=== PATIENT | female | born 1975 | race Caucasian/White ===

== ENCOUNTER 2016-09-22 09:54 | Emergency (ER) | payer OTHER ==
[2016-09-22 10:08] VITALS: O2SAT 99
--- NOTE | 2016-09-22 10:42 | ED.PDOC ---
History of Present Illness - General Chief Complaint: ENT Problem Stated Complaint: sorethroat Time Seen by Provider: 09/22/16 10:30 Source: patient Exam Limitations: no limitations Additional Information: LAST NOC, SHE STARTED WITH S.T., BL EAR PRESSURE, NASAL CONGESTION. PERSISTS/ WORSENED TODAY. DAUGHTER DX'D W/ STREP THROAT SO SHE WANTED TO GET CHECKED OUT FOR IT AND FLU. - History of Present Illness Severity: moderate EENT Location: throat Prearrival Treatment: no prearrival treatment Improving Factors: nothing Worsening Factors: nothing Associated Symptoms: nasal congestion/drainage, sore throat Allergies/Adverse Reactions: Allergies Erythromycin Allergy (Verified 09/22/16 10:08) Penicillins Allergy (Verified 09/22/16 10:08) Review of Systems - Review of Systems Constitutional: Denies: chills, fever, weakness EENTM: States: ear pain, nose congestion, throat pain. Denies: eye pain, blurred vision, ear discharge, throat swelling Respiratory: States: no symptoms reported. Denies: cough, short of breath, wheezing Cardiology: States: no symptoms reported Gastrointestinal/Abdominal: States: no symptoms reported Genitourinary: States: no symptoms reported Musculoskeletal: States: no symptoms reported Skin: States: no symptoms reported Neurological: States: no symptoms reported Endocrine: States: no symptoms reported Hematologic/Lymphatic: States: no symptoms reported All other Systems: Reviewed and Negative Past Medical History (General) - Patient Medical History Hx Seizures: Yes Hx Stroke: No Hx Cardiac Disorders: - SVT, Tachycardia Hx Congestive Heart Failure: No Hx Diabetes: No Surgical History: other - Vaccination History Hx Tetanus, Diphtheria Vaccination: Yes Hx Influenza Vaccination: Yes - 2015 Hx Pneumococcal Vaccination: No - Social History Hx Tobacco Use: Yes - Quit 2009 Hx Alcohol Use: No Hx Substance Use: No Hx Substance Use Treatment: No Hx Depression: No - Activities of Daily Living Hospice Agency (if applicable):: None - Female History Patient is a Female of Child Bearing Age (10 -59 yrs old): No Patient : No Family Medical History - Family History Mother Family History: No Known Living Status: Still Living Physical Exam - Physical Exam General Appearance: No apparent distress, Well Developed, Well Groomed Eye Exam: bilateral normal Ear Exam: right ear: auricle normal, canal normal, TM normal, left ear: other - TM DULL Nasal Exam: normal inspection Throat Exam: normal mouth inspection, pharynx normal Neck: non-tender, full range of motion, supple Cardiovascular/Respiratory: regular rate, rhythm, no M/R/G, normal breath sounds , no respiratory distress Abdominal Exam: non-tender Neurologic: alert, oriented x 3 Skin Exam: normal color, warm/dry Progress - Results/Orders Results/Orders: RAPID FLU AND STREP NEG. ONLY HAS 1/4 [facility]OR CRITERIA, THUS NO ABX INDICATED. VIRAL URI. WE TALKED IN DEPTH AND SHE IS COMFORTABLE WITH NOT HAVING AN ABX RX AND UNDERSTANDS IT WILL TAKE TIME FOR HER IMMUNE SYSTEM TO FIGHT IT OFF. Departure - Departure Clinical Impression: Upper respiratory infection, viral, Pharyngitis, acute, Sore throat (viral) Disposition: Discharge to Home or Self Care Condition: Good Departure Forms: ED Discharge - Pt. Copy, Patient Portal Self Enrollment Instructions: DI for Viral Upper Respiratory Infection -- Adult Diet: regular diet Activity: increase activity as tolerated Additional Instructions: Please take Mucinex (Guaifenesin, Robitussin) as needed to help with congestion. Ibuprofen can help with the discomfort. Chloraseptic sort throat spray or [place] menthol cough drops can help to soothe the sore throat. I hope you feel better soon!
[2016-09-22 11:10] VITALS: BP 117/81; TEMP 98.3
== END 2016-09-22 11:11 | disposition home or self-care (01) ==
LOC: ER 09:54
DX: J06.9 Acute upper respiratory infection, unspecified (principal); Z87.891 Personal history of nicotine dependence; Z88.0 Allergy status to penicillin; Z88.3 Allergy status to other anti-infective agents

== ENCOUNTER 2016-12-21 20:10 | Emergency (ER) | payer OTHER ==
[2016-12-21 20:31] VITALS: BP 136/84; TEMP 98; O2SAT 98
--- NOTE | 2016-12-21 21:28 | ED.PDOC ---
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 She reports ear pain and throat pain and she is concerned she may have strep throat. - History of Present Illness Timing/Duration: gradual Severity: mild EENT Location: ear (R) Prearrival Treatment: no prearrival treatment Improving Factors: nothing Allergies/Adverse Reactions: Allergies Erythromycin Allergy (Verified 12/21/16 20:31) Penicillins Allergy (Verified 12/21/16 20:31) Home Medications: Ambulatory Orders NK [NK] 12/21/16 Review of Systems - Review of Systems Constitutional: States: no symptoms reported EENTM: States: see HPI, ear pain, throat pain Respiratory: States: no symptoms reported Cardiology: States: no symptoms reported Gastrointestinal/Abdominal: States: no symptoms reported Genitourinary: States: no symptoms reported Musculoskeletal: States: no symptoms reported Skin: States: no symptoms reported Neurological: States: no symptoms reported Endocrine: States: no symptoms reported Hematologic/Lymphatic: States: no symptoms reported Past Medical History (General) - Patient Medical History Hx Seizures: Yes Hx Stroke: No Hx Cardiac Disorders: - SVT, Tachycardia Hx Congestive Heart Failure: No Hx Diabetes: No - Vaccination History Hx Tetanus, Diphtheria Vaccination: Yes Hx Influenza Vaccination: Yes Hx Pneumococcal Vaccination: No Immunizations Up to Date: Yes - Social History Hx Tobacco Use: Yes - Quit 2009 Hx Alcohol Use: Yes Hx Substance Use: No Hx Substance Use Treatment: No Hx Depression: No - Female History Patient is a Female of Child Bearing Age (10 -59 yrs old): Yes Patient : No Family Medical History - Family History Mother Family History: No Known Living Status: Still Living Physical Exam - Physical Exam General Appearance: Alert, Comfortable, No apparent distress, Well Developed, Well Groomed, Well Hydrated, Well Nourished Eye Exam: bilateral normal Ear Exam: bilateral ear: TM normal Nasal Exam: normal inspection Throat Exam: pharynx normal Neck: non-tender, full range of motion, supple Cardiovascular/Respiratory: regular rate, rhythm, normal peripheral pulses, no respiratory distress 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 Exam unremarkable. Strep swab obtained - rapid negative. Results relayed to patient. Plan is for discharge home with plan to take Flonase - 2 sprays each nostril daily followed by 1 spray each nostril daily. Pt is to f/u with PCM if unimproved in 2 to 3 days as well as call for culture results if symptoms persist. Pt advised to return to ER if condition worsens. - Results/Orders Results/Orders: 12/21/16 21:00 STREP A SCREEN CULTURE Stat Laboratory Results - last 24 hr 12/21/16 21:00 Group A Strep Rapid Cancelled Group A Strep DNA Negative Departure - Departure Clinical Impression: Earache on right Acute pharyngitis, unspecified Qualifiers: Pharyngitis/tonsillitis etiology: unspecified etiology Qualified Code(s): J02.9 - Acute pharyngitis, unspecified Time of Disposition: 21:35 Disposition: Discharge to Home or Self Care Condition: Good Departure Forms: ED Discharge - Pt. Copy, Patient Portal Self Enrollment Instructions: Allergies, Respiratory (Alternative Therapy) Referrals: Gorge Mohan MD [Primary Care Provider] - 1-5 Days Home Medications: Ambulatory Orders NK [NK] 12/21/16 Additional Instructions: Take Flonase - 2 sprays each nostril daily for 1 week and then 1 spray each nostril daily for at least another week. Follow-up with Primary Care Provider if symptoms persist in 2 to 3 days, or return to ER sooner if condition worsens.
== END 2016-12-21 21:37 | disposition home or self-care (01) ==
LOC: ER 20:10
DX: J02.9 Acute pharyngitis, unspecified (principal); H92.01 Otalgia, right ear; I47.1 Supraventricular tachycardia; Z88.3 Allergy status to other anti-infective agents; Z88.0 Allergy status to penicillin; Z87.891 Personal history of nicotine dependence

== ENCOUNTER → 2017-05-23 | Outpatient (CLI) | payer OTHER | END | disposition home or self-care (01) | LOC: GMA 13:20 | PROVIDERS: ATTEND Nurse Practitioner Acute Care | DX: R53.83 Other fatigue (principal); Z01.419 Encounter for gynecological examination (general) (routine) without abnormal findings ==

== ENCOUNTER → 2017-06-04 | Outpatient (CLI) | payer OTHER ==
--- NOTE | 2017-06-05 14:03 | MAM ---
EXAM DESCRIPTION: 3D Screening BILATERAL CLINICAL HISTORY: 41 yearsFemaleSCREENING no complaints. Remote family history of breast cancer. Premenopausal.. COMPARISON: 2-D digital screening bilateral study 03/20/2016.. Report from prior examination also reviewed. TECHNIQUE: Bilateral CC and MLO projection full-field images, 3-D tomosynthesis digital mammographic technique. Also bilateral synthesized CC/ MLO full-field images. CAD not utilized. FINDINGS: The breast parenchymal density pattern is: Heterogeneously dense breast tissue, which may obscure small masses. No skin thickening or nipple retraction bilateral solitary microcalcifications. No focal, stellate mass or density, focal asymmetry , and no suspicious microcalcifications bilaterally. Stable mammograms compared to prior study, taking into account differences in mammographic technique IMPRESSION: BI-RADS CATEGORY: 2 - BENIGN FINDINGS. FOLLOW UP: Routine digital bilateral screening, one year interval from May 2017. Written communication explaining the IMPRESSION and follow-up, will be mailed to the patient and referring health care provider. According to the [employer], yearly mammograms are recommended starting at age 40 and continuing as long as a woman is in good health. Any breast change noted on a breast self-exam should be reported promptly to the patient's healthcare provider. Breast MRI is recommended for women with an approximately 20-25% or greater lifetime risk of breast cancer, including women with a strong family history of breast or ovarian cancer and women who have been treated for Hodgkin's disease. A negative mammographic report should not delay tissue diagnosis in patients with significant clinical history or physical findings. Extremely dense breast tissue limits the sensitivity of digital mammography. Electronically signed by: Severiano Olson MD 06/05/2017 2:02 PM CDT
== END | disposition home or self-care (01) ==
LOC: MAMMO 09:38
PROVIDERS: ATTEND Family Medicine
DX: Z12.31 Encounter for screening mammogram for malignant neoplasm of breast (principal)
CPT/HCPCS: 77063; G0202

== ENCOUNTER → 2017-09-11 | Outpatient (CLI) | payer OTHER | END | disposition home or self-care (01) | LOC: LAB.O 16:51 | PROVIDERS: ATTEND Family Medicine | DX: R19.7 Diarrhea, unspecified (principal) ==

== ENCOUNTER → 2017-10-21 | Outpatient (CLI) | payer OTHER | LOC: GMAB 11:22 | PROVIDERS: ATTEND Family Medicine | DX: E03.9 Hypothyroidism, unspecified (principal) ==

== ENCOUNTER → 2017-11-05 | Outpatient (CLI) | payer OTHER | LOC: GMA 11:20 | PROVIDERS: ATTEND Physician Assistant | DX: G47.62 Sleep related leg cramps (principal) ==

== ENCOUNTER → 2017-12-18 | Outpatient (CLI) | payer OTHER | LOC: GMAM 14:19 | PROVIDERS: ATTEND Family Medicine | DX: R60.0 Localized edema (principal); E03.9 Hypothyroidism, unspecified ==

== ENCOUNTER → 2017-12-30 | Outpatient (CLI) | payer OTHER | LOC: LAB.O 18:27 | PROVIDERS: ATTEND Nurse Practitioner Family | DX: E53.9 Vitamin B deficiency, unspecified (principal); E55.9 Vitamin D deficiency, unspecified ==

== ENCOUNTER → 2018-02-11 | Outpatient (CLI) | payer OTHER | LOC: GMAM 16:45 | PROVIDERS: ATTEND Family Medicine | DX: E03.9 Hypothyroidism, unspecified (principal) ==

== ENCOUNTER → 2018-02-24 | Outpatient (CLI) | payer OTHER | LOC: LAB.O 12:04 | PROVIDERS: ATTEND Family Medicine | DX: L63.0 Alopecia (capitis) totalis (principal); E03.9 Hypothyroidism, unspecified ==

== ENCOUNTER → 2018-07-13 | Outpatient (CLI) | payer OTHER ==
--- NOTE | 2018-07-14 10:33 | MAM ---
EXAM DESCRIPTION: 3D Screening BILATERAL : Digital Mammography. CLINICAL HISTORY: 43 years Female ANNUAL SCREENING . No complaints or personal history of breast cancer. Remote family history of breast cancer. Childbirth. Premenopausal. No HRT. Lifetime risk of developing breast cancer (Tyrer-Cuzick model)(%): 13.0. COMPARISON: Bilateral screening digital breast tomosynthesis 06/04/2017. TECHNIQUE: Bilateral CC and MLO projection full-field images, digital tomosynthesis mammographic technique. Bilateral digital 2-D full-field MLO images. CAD not available for tomosynthesis or 2-D images. FINDINGS: The breast parenchymal density pattern is: Heterogeneously dense breast tissue, which may obscure small masses. No skin thickening or nipple retraction. Scattered bilateral solitary microcalcifications. Questionable focal asymmetry at the 11:30 to 12:00 position of the left breast approximately 7 cm from the nipple. There may be some architectural distortion as well. Not associated with microcalcifications. Not well seen on the prior study. No new focal, stellate mass or density, focal asymmetry , and no suspicious microcalcifications right breast. IMPRESSION: BI-RADS CATEGORY: 0 - INCOMPLETE- Need additional imaging evaluation. FOLLOW-UP: Recall for additional imaging: Orthogonal full-field tomosynthesis region of interest left breast. Targeted left breast ultrasound to follow if indicated by diagnostic images.. Written communication concerning the IMPRESSION and Follow-up, will be mailed to the patient and referring health care provider. Electronically signed by: Severiano Olson MD 07/14/2018 10:32 AM MIME ARTIST
== END ==
LOC: MAMMO 09:00
PROVIDERS: ATTEND Family Medicine
DX: Z12.31 Encounter for screening mammogram for malignant neoplasm of breast (principal)

== ENCOUNTER → 2018-07-20 | Outpatient (CLI) | payer OTHER ==
--- NOTE | 2018-07-20 14:32 | US ---
EXAM DESCRIPTION: Breast,Left: Ultrasound CLINICAL HISTORY: 43 yearsFemaleABN MAMMO COMPARISON: Digital diagnostic tomosynthesis left breast on this visit. Bilateral screening digital breast tomosynthesis 07/13/2018. TECHNIQUE: Transcutaneous scanning of the left breast utilizing dominique-scale and Doppler modes. Scanning performed by the subpoena server ; observation by Dr. Olson. FINDINGS: Scanning of the upper left breast middle third. Heterogeneous mixture of fibroglandular and fatty tissues. Specifically scanning at the 12:00-1:00 position, 6 cm from the nipple. No distinct solid mass or cyst. No large calcification or parenchymal edema. No overlying skin changes. Normal vascularity. IMPRESSION: 1. Bi-Rads Category 2: Benign. 2. Please refer to diagnostic tomosynthesis left breast and report on this visit. The FINDINGS and the FOLLOW-UP plan were reviewed in person with the patient after the examination. Written communication explaining the IMPRESSION and FOLLOW-UP will be mailed to the patient and referring care provider. Electronically signed by: Severiano Olson MD 07/20/2018 2:30 PM [facility]
--- NOTE | 2018-07-21 10:04 | MAM ---
EXAM DESCRIPTION: 3D Diagnostic, Left: Digital Mammography CLINICAL HISTORY: 43 yearsFemaleABNORMAL MAMMO focal asymmetry upper left breast. COMPARISON: Bilateral screening digital breast tomosynthesis 07/13/2018. Targeted left breast ultrasound following this examination.. TECHNIQUE: Left LM projection full-field images, digital mammographic tomosynthesis technique. CAD not available. FINDINGS: The breast parenchymal density pattern is: Heterogeneously dense breast tissue, which may obscure small masses. No skin thickening or nipple retraction focal asymmetry at the 12:00 position of the middle third of the left breast not as well-demonstrated on LM tomosynthesis images today. Ultrasound: Scanning of the upper left breast middle third. Heterogeneous mixture of fibroglandular and fatty tissues. Specifically scanning at the 12:00-1:00 position, 6 cm from the nipple. No distinct solid mass or cyst. No large calcification or parenchymal edema. No overlying skin changes. Normal vascularity. IMPRESSION: Benign exam. BIRAD CATEGORY: 2 BENIGN FINDINGS. RECOMMENDATIONS: FOLLOW UP: Routine digital bilateral mammographic screening, one year interval from June 2018. The FINDINGS and the FOLLOW-UP plan were reviewed in person with the patient after the examination. Written communication explaining the IMPRESSION and FOLLOW-UP will be mailed to the patient and referring care provider. According to the [employer], yearly mammograms are recommended starting at age 40 and continuing as long as a woman is in good health. Any breast change noted on a breast self-exam should be reported promptly to the patient's healthcare provider. Breast MRI is recommended for women with an approximately 20-25% or greater lifetime risk of breast cancer, including women with a strong family history of breast or ovarian cancer and women who have been treated for Hodgkin's disease. A negative mammographic report should not delay tissue diagnosis in patients with significant clinical history or physical findings. Extremely dense breast tissue limits the sensitivity of digital mammography. Electronically signed by: Severiano Olson MD 07/21/2018 10:03 AM [facility]
== END ==
LOC: MAMMO 11:03
PROVIDERS: ATTEND Family Medicine
DX: R92.8 Other abnormal and inconclusive findings on diagnostic imaging of breast (principal)
CPT/HCPCS: 76641; 77065; G0279

== ENCOUNTER 2020-01-04 00:03 | Emergency (ER) | payer OTHER ==
[2020-01-04] MEDS ORDERED: SODIUM CHLORIDE 0.9% (FLUSH) 10 ML SYG IV PRN (00:06)
--- NOTE | 2020-01-04 00:07 | ED.PDOC ---
History of Present Illness - General Time Seen by Provider: 01/04/20 00:05 Source: patient - History of Present Illness Initial Comments: 44 yo female with PMH of anxiety who presents with cc of anxiety and chest pain. Chest pain onset 3-4 days ago, gradually worsening, further acutely worsened tonight in past couple hours. States she has been anxious for the past several weeks from the pandemic. She has tried to quit watching the news but still re porting large amounts of anxiety. Reports worsening tightness throughout her chest - begins in center and left chest wall and radiates to Left arm, upper back, and right chest wall. Waxes & wanes, 7/10 severity on arrival, better with activity and moving around, worse when lying still, tried Tylenol earlier with little relief. Denies any dyspnea, cough, fevers, chills, abd pain, n/v/d, leg swelling. PCP is Dr. Mohan. She is worried she may be having a panic attack. Pt in tears upon arrival. Reports a similar episode approx 9 years ago shortly after the of her daughter. Does not take any medications currently. No reported personal or family hx of cardiac dz. Never smoker, denies illicit drug or alcohol use. Allergies/Adverse Reactions: Allergies Erythromycin Allergy (Verified 01/04/20 00:13) Penicillins Allergy (Verified 01/04/20 00:13) Home Medications: Ambulatory Orders Hydroxyzine HCl 25 mg PO Q6H PRN 30 Days #30 tab 01/04/20 Review of Systems - Review of Systems Review of Systems: 01/04/20 01:06 as per HPI All other Systems: Reviewed and Negative Past Medical History (General) - Patient Medical History Hx Seizures: Yes Hx Stroke: No Hx Cardiac Disorders: - SVT, Tachycardia Hx Congestive Heart Failure: No Hx Diabetes: No - Vaccination History Hx Tetanus, Diphtheria Vaccination: Yes Hx Influenza Vaccination: Yes Hx Pneumococcal Vaccination: No - Social History Hx Tobacco Use: Yes - Quit 2009 Hx Alcohol Use: Yes Hx Substance Use: No Hx Substance Use Treatment: No Hx Depression: No - Female History Patient : No Family Medical History - Family History Mother Family History: No Known Living Status: Still Living Physical Exam - Physical Exam General Appearance: Alert, Anxious, No apparent distress Eyes, Ears, Nose, Throat Exam: PERRL/EOMI, normal ENT inspection, pharynx normal Neck: non-tender, full range of motion, supple, normal inspection Respiratory: chest non-tender, lungs clear, normal breath sounds, no respiratory distress, no accessory muscle use Cardiovascular/Chest: normal peripheral pulses, regular rate, rhythm, no edema, no gallop, no JVD, no murmur, other - upper parathoracic musculature with moderate ttp and scattered spasms Peripheral Pulses: radial,right: 2+, radial,left: 2+ Gastrointestinal/Abdominal: non tender, soft, no organomegaly Extremity: normal range of motion, non-tender, normal inspection, no pedal edema, no calf tenderness, normal capillary refill 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 Consider also MSK chest pain, upper back muscle spasms, PNA, ACS, GERD, other -pt is negative for PE by PERC rule -vitals stable, BP mildly elevated 140s/90s -obtain cardiac work-up, labs -place PIV, Toradol 30 mg IV, Xanax 0.5 mg PO 01/04/20 02:22 -Pt reports marked improvement in chest pain and anxiety. Feeling much better and eager to go home. Remains stable, vitals wnl. -Trop <0.02 x2 in ED, repeat EKG unchanged from initial. K 3.1 (replenished PO), remainder of labs pretty unremarkable. -Discussed diagnosis of acute anxiety and panic attack with patient. Advised continued nonpharmacological methods of dealing/cope with stress/anxiety. Will give Rx of PRN hydroxyzine to try to help with breakthrough anxiety. -will dc to home in good condition, return warnings discussed. Advised close f/u with PCP Geovanny Yepez MD Billing #[id number] 01/04/20 00:06 IV Care:Saline Lock per Protoc QSHIFT Telemetry .ONCE Sodium Chloride 0.9% (Flush) [Saline Flush Syringe] 10 ml IV PRN PRN 01/04/20 00:15 EKG STAT 01/04/20 01:45 EKG STAT 01/04/20 09:00 Pulse Ox Daily Laboratory Results - last 24 hr 0501/04/20 01/04/20 00:20 00:20 00:20 WBC 7.4 RBC 4.74 Hgb 14.2 Hct 42.0 MCV 88.5 MCH 29.9 MCHC 33.8 RDW 15.5 H Plt Count 238 MPV 6.6 L Absolute Neuts (auto) 3.20 Absolute Lymphs (auto) 3.30 Absolute Monos (auto) 0.60 Absolute Eos (auto) 0.20 Absolute Basos (auto) 0.10 Neutrophils % 43.1 Lymphocytes % 44.1 Monocytes % 8.7 Eosinophils % 3.1 Basophils % 1.0 Sodium 138 Potassium 3.2 L Chloride 106 Carbon Dioxide 21 Anion Gap 14.2 BUN 7 Creatinine 0.51 L BUN/Creatinine Ratio 13.7 Random Glucose 95 Serum Osmolality 273.5 L Calcium 9.2 Total Bilirubin 1.0 AST 24 ALT 23 Alkaline Phosphatase 27 L Troponin I < 0.02 B-Natriuretic Peptide 5.6 Serum Total Protein 7.2 Albumin 4.5 Globulin 2.7 Albumin/Globulin Ratio 1.7 01/04/20 01:53 WBC RBC Hgb Hct MCV MCH MCHC RDW Plt Count MPV Absolute Neuts (auto) Absolute Lymphs (auto) Absolute Monos (auto) Absolute Eos (auto) Absolute Basos (auto) Neutrophils % Lymphocytes % Monocytes % Eosinophils % Basophils % Sodium Potassium Chloride Carbon Dioxide Anion Gap BUN Creatinine BUN/Creatinine Ratio Random Glucose Serum Osmolality Calcium Total Bilirubin AST ALT Alkaline Phosphatase Troponin I < 0.02 B-Natriuretic Peptide Serum Total Protein Albumin Globulin Albumin/Globulin Ratio - EKG/XRAY/CT EKG: Sinus - NSR, HR 90, no ST elevs or q waves noted, axis normal, QT interval borderline prolonged 497 msecs, intervals otherwise normal, no prior EKG for comparison XRAY: chest - no acute processes per my read Departure - Departure Clinical Impression: Anxiety, Panic attack Time of Disposition: 02:22 Disposition: Discharge to Home or Self Care Condition: Good Instructions: DI for Chest Pain, Anxiety, Adult (DC) Diet: resume usual diet Activity: increase activity as tolerated Referrals: Gorge Mohan MD [Primary Care Provider] - 1-2 Weeks Prescriptions: Hydroxyzine HCl 25 mg PO Q6H PRN 30 Days #30 tab PRN Reason: Anxiety Home Medications: Ambulatory Orders Hydroxyzine HCl 25 mg PO Q6H PRN 30 Days #30 tab 05/12/20 Additional Instructions: Return if chest pain worsens or changes in character or if you develop shortness of breath, productive cough, fever >100 F, etc... Continue taking ibuprofen and Tylenol as needed for pain. You may take the hydroxyzine as needed for anxiety.
--- NOTE | 2020-01-04 00:29 | RAD ---
EXAM: XR Chest, 1 View CLINICAL HISTORY: 44 years old Female; left-sided chest pain. TECHNIQUE: Frontal view of the chest. COMPARISON: Similar examination performed 07/29/2011, no report provided. FINDINGS: LUNGS: Lungs clear of new focal infiltrate or mass. PLEURAL SPACE: No increasing pleural fluid. No pneumothorax. HEART: Heart not enlarged. MEDIASTINUM: Stable in contour. BONES/JOINTS: No acute bony abnormality seen. IMPRESSION: - No acute cardiopulmonary pathology seen. Please note that chest radiographs have low sensitivity for subtle groundglass opacities. Thank you for allowing us to participate in the care of this patient. Electronically signed by: Aníbal Pacheco MD 01/04/2020 12:27 AM CDT
[2020-01-04] MEDS ORDERED: ALPRAZolam 0.25 MG TAB PO ONE (01:01)
[2020-01-04] MEDS ORDERED: KETOROLAC TROMETHAMINE INJ 30 MG/ML VIAL IV ONE (01:01)
[2020-01-04] MEDS ORDERED: SODIUM CHLORIDE 0.9% 500ML 500 ML IVS ONE (01:08)
[2020-01-04] MEDS ORDERED: POTASSIUM CHLORIDE 20 MEQ TAB PO ONE (01:09)
[2020-01-04 02:02] VITALS: O2SAT 100
[2020-01-04 02:28] VITALS: BP 119/80
[2020-01-04 02:30] VITALS: TEMP 97.7
== END 2020-01-04 02:31 | disposition home or self-care (01) ==
LOC: ER 00:03
DX: F41.0 Panic disorder [episodic paroxysmal anxiety] (principal); R07.89 Other chest pain; E87.6 Hypokalemia; Z87.891 Personal history of nicotine dependence
CPT/HCPCS: 36415; 71045; 80053; 83880; 84484; 85025; 93005; J1885; J7040

== ENCOUNTER 2020-02-18 21:54 | Emergency (ER) | payer OTHER ==
[2020-02-18] MEDS ORDERED: predniSONE 20 MG TAB PO ONE (22:13)
[2020-02-18 22:14] VITALS: BP 152/101; TEMP 97.9; O2SAT 100
[2020-02-18] MEDS ORDERED: diphenhydrAMINE HCL 25 MG CAP PO ONE (22:14)
--- NOTE | 2020-02-18 22:16 | ED.PDOC ---
History of Present Illness - General Chief Complaint: General Stated Complaint: my left leg is swollen and tender Time Seen by Provider: 02/18/20 22:08 Source: patient Exam Limitations: no limitations - History of Present Illness Initial Comments: The patient is a 44-year-old female presented emergency room secondary to mild erythema and swelling just inferior to the posterior left knee. She just noticed it this evening. There is mild burning and a mild itching sensation. No evidence of any bite. No evidence of any blistering. No point tenderness or palpable cords. No varicose veins obvious. This looks most consistent with a contact or allergic dermatitis type reaction. No evidence of any similar areas elsewhere on her body. No shortness of breath. No history of any DVTs. She has been active all day. Timing/Duration: 1-3 hours Severity: mild Improving Factors: nothing Worsening Factors: nothing Associated Symptoms: denies symptoms Allergies/Adverse Reactions: Allergies Erythromycin Allergy (Verified 01/04/20 00:13) Penicillins Allergy (Verified 01/04/20 00:13) Home Medications: Ambulatory Orders Hydroxyzine HCl 25 mg PO Q6H PRN 30 Days #30 tab 01/04/20 Review of Systems - Review of Systems Constitutional: States: no symptoms reported EENTM: States: no symptoms reported Respiratory: States: no symptoms reported Cardiology: States: no symptoms reported Gastrointestinal/Abdominal: States: no symptoms reported Genitourinary: States: no symptoms reported Musculoskeletal: States: no symptoms reported Skin: States: see HPI Neurological: States: no symptoms reported Endocrine: States: no symptoms reported All other Systems: No Change from Baseline Past Medical History (General) - Patient Medical History Hx Seizures: Yes Hx Stroke: No Hx Dementia: No Hx Asthma: No Hx of COPD: No Hx Cardiac Disorders: - SVT, Tachycardia Hx Congestive Heart Failure: No Hx Pacemaker: No Hx Hypertension: No Hx Diabetes: No Hx Gastroesophageal Reflux: No Hx Renal Disease: No Hx Cancer: No Hx of HIV: No Hx Hepatitis C: No Hx MRSA: No - Vaccination History Hx Tetanus, Diphtheria Vaccination: Yes Hx Influenza Vaccination: Yes Hx Pneumococcal Vaccination: No - Social History Hx Tobacco Use: Yes - Quit 2009 Hx Alcohol Use: Yes Hx Substance Use: No Hx Substance Use Treatment: No Hx Depression: No - Female History Patient : No Family Medical History - Family History Mother Family History: No Known Living Status: Still Living Physical Exam - Physical Exam General Appearance: Alert, Comfortable, No apparent distress Eye Exam: bilateral normal Ears, Nose, Throat: hearing grossly normal Respiratory: lungs clear, normal breath sounds, no respiratory distress, no accessory muscle use Cardiovascular/Chest: no edema Peripheral Pulses: radial,right: 2+, radial,left: 2+ Rectal Exam: deferred Extremity: normal range of motion, non-tender, no pedal edema, normal capillary refill 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 Comments: Vital Signs - 24 hr 02/18/20 21:59 Temperature 97.9 F Pulse Rate [ 88 monitor] Respiratory 16 Rate Blood Pressure 152/101 [Left Arm] O2 Sat by Pulse 100 Oximetry Progress - Progress Progress: 02/18/20 22:16 The patient is a 44-year-old female presenting with what appears to be an allergic or contact dermatitis to the left upper posterior calf. Source of this is not certain. The patient was given a dose of prednisone and Benadryl. She does need to watch it over the next week to make sure it slowly is resolving. She is return to the emergency room for any significant worsening. ER warnings are given. Keep routine follow-up with primary care doctor. Departure - Departure Clinical Impression: Dermatitis Disposition: Discharge to Home or Self Care Condition: Fair Departure Forms: ED Discharge - Pt. Copy, Patient Portal Self Enrollment Instructions: Contact Dermatitis (DC) Diet: regular diet Activity: increase activity as tolerated Referrals: Gorge Mohan MD [Primary Care Provider] - 1-2 Weeks Home Medications: Ambulatory Orders Hydroxyzine HCl 25 mg PO Q6H PRN 30 Days #30 tab 01/04/20 Additional Instructions: The patient is a 44-year-old female presenting with what appears to be an allergic or contact dermatitis to the left upper posterior calf. Source of this is not certain. The patient was given a dose of prednisone and Benadryl. She does need to watch it over the next week to make sure it slowly is resolving. She can take Zyrtec 10 mg daily for the next week which may also help. Additionally [id number] hydrocortisone 10 topically once or twice a day may also help to shorten the course. She is return to the emergency room for any significant worsening. ER warnings are given. Keep routine follow-up with primary care doctor.
== END 2020-02-18 22:20 | disposition home or self-care (01) ==
LOC: ER 21:54
DX: L30.9 Dermatitis, unspecified (principal); Z87.891 Personal history of nicotine dependence
CPT/HCPCS: J7512; Q0163

== ENCOUNTER 2020-03-16 17:39 | Emergency (ER) | payer OTHER ==
--- NOTE | 2020-03-16 18:07 | ED.PDOC ---
History of Present Illness - General Time Seen by Provider: 03/16/20 17:59 Source: patient, RN notes reviewed, Vital Signs reviewed Exam Limitations: no limitations - History of Present Illness Initial Comments: Patient is a 44-year-old female who presents the ED for mild cough for the past 3 days. States she has had chest congestion and runny nose and feels like she may have bronchitis. Also states that she has had loose stools 1-2 times a day for the past 5 days. Denies any abdominal pain, blood in stool, nausea, vomiting, chest pain or feeling short of breath. Had subjective fever at home but has not taken her temperature. Also states she has been exposed to someone with COVID-19 recently and is unsure if the symptoms may be due to COVID-19. Allergies/Adverse Reactions: Allergies Erythromycin Allergy (Verified 01/04/20 00:13) Penicillins Allergy (Verified 01/04/20 00:13) Review of Systems - Review of Systems Constitutional: Denies: chills, weakness EENTM: States: nose congestion. Denies: ear pain, throat pain Respiratory: States: cough. Denies: short of breath, wheezing Cardiology: Denies: palpitations, syncope Gastrointestinal/Abdominal: States: diarrhea. Denies: abdominal pain, nausea, vomiting Genitourinary: Denies: dysuria, frequency, hematuria Musculoskeletal: Denies: back pain, neck pain Skin: States: no symptoms reported Neurological: Denies: headache, paresthesia All other Systems: Reviewed and Negative Past Medical History (General) - Patient Medical History Hx Seizures: Yes Hx Stroke: No Hx Dementia: No Hx Asthma: No Hx of COPD: No Hx Cardiac Disorders: - SVT, Tachycardia Hx Congestive Heart Failure: No Hx Pacemaker: No Hx Hypertension: No Hx Diabetes: No Hx Gastroesophageal Reflux: No Hx Renal Disease: No Hx Cancer: No Hx of HIV: No Hx Hepatitis C: No Hx MRSA: No - Vaccination History Hx Tetanus, Diphtheria Vaccination: Yes Hx Influenza Vaccination: Yes Hx Pneumococcal Vaccination: No - Social History Hx Tobacco Use: Yes - Quit 2009 Hx Alcohol Use: Yes Hx Substance Use: No Hx Substance Use Treatment: No Hx Depression: No - Female History Patient : No Family Medical History - Family History Mother Family History: No Known Living Status: Still Living Physical Exam - Physical Exam General Appearance: Alert, Comfortable, No apparent distress, Other - Well- appearing, nontoxic Ears, Nose, Throat: normal pharynx Neck: full range of motion, supple Respiratory: chest non-tender, lungs clear, normal breath sounds, no respiratory distress, no accessory muscle use Cardiovascular/Chest: normal peripheral pulses, regular rate, rhythm, no murmur Gastrointestinal/Abdominal: non tender, soft, no pulsatile mass Back Exam: no CVA tenderness, no vertebral tenderness Extremity: normal range of motion, non-tender, no pedal edema Neurologic: no motor/sensory deficits, alert, normal mood/affect Skin Exam: normal color, warm/dry Progress - Progress Progress: 03/16/20 18:08 Patient presents to ED for several day history of cough and loose stools. Has had no documented fever and has not been short of breath. Vital signs are reassuring. I have discussed with patient that in the emergency we are testing people that likely will need admission for COVID-19. I have given her resources for outpatient testing in the clinic tomorrow. Will get chest x-ray to rule out pneumonia. Patient agrees with plan 03/16/20 19:13 Chest x-ray shows no acute process. Patient has no hypoxia or respiratory distress. Lung sounds are clear. Patient stable for outpatient treatment and will follow up with her PCP for continued evaluation and possible COVID-19 testing in the morning. Strict return precautions given. - Results/Orders Results/Orders: Chest xray EXAM DESCRIPTION: Chest,1 View CLINICAL HISTORY:44 years Female, shortness of breath Comparison: January 04, 2020 FINDINGS: No focal lung consolidation. No pleural effusion. No pneumothorax. Cardiac and mediastinal silhouette is unremarkable. No acute osseous abnormality. Soft tissues are unremarkable. IMPRESSION: No acute findings. No focal lung consolidation. Departure - Departure Clinical Impression: Viral URI with cough Time of Disposition: 19:11 Disposition: Discharge to Home or Self Care Condition: Good Instructions: Viral Upper Respiratory Infection, Adult (DC) Diet: resume usual diet Activity: increase activity as tolerated Referrals: Gorge Mohan MD [Primary Care Provider] - 1-2 Days
--- NOTE | 2020-03-16 19:07 | RAD ---
EXAM DESCRIPTION: Chest,1 View CLINICAL HISTORY:44 years Female, shortness of breath Comparison: January 04, 2020 FINDINGS: No focal lung consolidation. No pleural effusion. No pneumothorax. Cardiac and mediastinal silhouette is unremarkable. No acute osseous abnormality. Soft tissues are unremarkable. IMPRESSION: No acute findings. No focal lung consolidation. Electronically signed by: Bear Wiggins MD 03/16/2020 7:05 PM CDT
[2020-03-16 19:19] VITALS: BP 140/90; TEMP 98.2; O2SAT 99
== END 2020-03-16 19:19 | disposition home or self-care (01) ==
LOC: ER 17:39
DX: J06.9 Acute upper respiratory infection, unspecified (principal); R05 Cough; Z87.891 Personal history of nicotine dependence; Z20.828 Contact with and (suspected) exposure to other viral communicable diseases

== ENCOUNTER 2020-03-21 09:47 | Emergency (ER) | payer OTHER ==
[2020-03-21] MEDS ORDERED: SODIUM CHLORIDE 0.9% 1000ML 1,000 ML IVS PRN (10:02)
[2020-03-21 10:11] VITALS: O2SAT 100
--- NOTE | 2020-03-21 10:14 | ED.PDOC ---
History of Present Illness - General Chief Complaint: Respiratory Problem Stated Complaint: chest tightness Time Seen by Provider: 03/21/20 09:51 - History of Present Illness Initial Comments: Pleasant 44 yo F comes in from PCP office with the c/c of difficulty breathing and chest pressure x 1 day. Patient started with nasal congestion and sinus pressure 4-5 days ago. Was evaluated and told she had a sinus infection. She then developed a PND cough. She was seen in resp clinic and tested positive for covid. Denies headaches, sore throat, change in vision. Chest pressure is substernal, does not radiate. Is constant. NO hx of cad, no family hx of cardiac disease. States she is very anxious. No known covid exposures. No hx of blood clots, no recent surgery or travel. no prolong bed rest. no calf swelling. Allergies/Adverse Reactions: Allergies Erythromycin Allergy (Verified 01/04/20 00:13) Penicillins Allergy (Verified 01/04/20 00:13) Home Medications: Ambulatory Orders Clindamycin HCl [Clindamycin Hydrochloride] 300 mg PO Q8H 10 Days #30 cap 03/21/20 Review of Systems - Review of Systems Constitutional: States: fever - unsure tempature. Denies: chills, diaphoresis, malaise, weakness EENTM: States: nose congestion. Denies: blurred vision, tearing, ear pain, ear discharge, nose pain, throat pain, throat swelling, mouth pain, mouth swelling Respiratory: States: cough, short of breath. Denies: orthopnea, stridor, wheezing Cardiology: States: chest pain. Denies: edema, palpitations, syncope Gastrointestinal/Abdominal: States: nausea. Denies: abdominal pain, constipation, diarrhea, vomiting Genitourinary: Denies: discharge, dysuria, frequency, hematuria Musculoskeletal: Denies: back pain, joint pain, muscle pain Skin: Denies: change in color, rash Neurological: Denies: headache, numbness, paresthesia, tingling, tremors, weakness Hematologic/Lymphatic: Denies: anemia, blood clots, easy bleeding All other Systems: Reviewed and Negative Past Medical History (General) - Patient Medical History Hx Seizures: Yes Hx Stroke: No Hx Dementia: No Hx Asthma: No Hx of COPD: No Hx Cardiac Disorders: - SVT, Tachycardia Hx Congestive Heart Failure: No Hx Pacemaker: No Hx Hypertension: No Hx Thyroid Disease: No Hx Diabetes: No Hx Gastroesophageal Reflux: No Hx Renal Disease: No Hx Cancer: No Hx of HIV: No Hx Hepatitis C: No Hx MRSA: No Surgical History: other - Vaccination History Hx Tetanus, Diphtheria Vaccination: Yes Hx Influenza Vaccination: Yes Hx Pneumococcal Vaccination: No - Social History Hx Tobacco Use: Yes - Quit 2009 Hx Alcohol Use: Yes Hx Substance Use: No Hx Substance Use Treatment: No Hx Depression: No - Female History Patient : No Family Medical History - Family History Mother Family History: No Known Living Status: Still Living Physical Exam - Physical Exam General Appearance: Alert, Comfortable, No apparent distress Eye Exam: bilateral normal ENT Exam: hearing grossly normal Neck: non-tender, full range of motion, supple, normal inspection, trachea m idline Respiratory: chest non-tender, lungs clear, normal breath sounds, no respiratory distress, no accessory muscle use Cardiovascular/Chest: normal peripheral pulses, regular rate, rhythm, no edema, no gallop, no JVD, no murmur Gastrointestinal/Abdominal: normal bowel sounds, non tender, soft, no organomegaly, no pulsatile mass Extremity: normal range of motion, non-tender, normal inspection, no pedal edema, no calf tenderness Neurologic: center 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 zofran from nausea. The data reviewed when caring for this patient included: nurse notes, prior records etc. The history and assessments from nurses notes were reviewed and considered, and the patient's home medication list was also reviewed and considered. My assessment and the results of testing completed here in the ED were discussed with the patient. EKG shows NSR at rate 82 with no evidence of ischemia. 03/21/20 10:17 Patient strep positive - will give one time dose of clindamycin 300 mg, as well as, PO dexamethasone 8 mg. 03/21/20 11:31 CTA Chest: 1. No pulmonary embolus. 2. Ground glass opacities along the peripheral lungs as described above most likely representing known COVID-19 infection per provided history. 03/21/20 11:44 Discuss case with PCP, Dr. Mohan. Will order D-dimer which is a send out. Patient is too follow up in 24 hours. Return precautions given. All questions were answered, and they express understanding of my assessment and the plan. They have been instructed to return if their symptoms worsen, and have been a sked to follow up with their primary care physician to recheck today's presenting complaint. Billing code 801 - Results/Orders Results/Orders: 03/21/20 10:00 EKG STAT 03/21/20 10:02 Sodium Chloride 0.9% 1000ML [Ns 1000 ml] 1,000 ml IVS STAT 03/21/20 10:07 RESPIRATORY PANEL 2 Stat 03/21/20 10:46 Isolation:Airborne ONCE 03/21/20 11:00 Pulse Ox, Continuous Monitoring STAT 03/21/20 11:37 D-DIMER,QUANTITATIVE Stat Laboratory Results - last 24 hr 03/21/20 03/21/20 03/21/20 10:00 10:00 10:00 WBC 4.6 L RBC 4.86 Hgb 14.9 Hct 43.4 MCV 89.3 MCH 30.7 MCHC 34.4 RDW 14.9 H Plt Count 224 MPV 6.8 L Absolute Neuts (auto) 3.10 Absolute Lymphs (auto) 1.00 Absolute Monos (auto) 0.40 Absolute Eos (auto) 0.10 Absolute Basos (auto) 0.00 Neutrophils % 67.2 Lymphocytes % 22.0 Monocytes % 8.8 Eosinophils % 1.1 Basophils % 0.9 PTT (SP) 24.9 Sodium 136 Potassium 3.5 L Chloride 106 Carbon Dioxide 20 L Anion Gap 13.5 BUN 10 Creatinine 0.51 L BUN/Creatinine Ratio 19.6 Random Glucose 98 Serum Osmolality 271.0 L Calcium 9.2 Magnesium 2.0 Total Bilirubin 1.1 H AST 21 ALT 20 Alkaline Phosphatase 28 L LD Total 142 Creatine Kinase 34 Troponin I < 0.02 C-Reactive Protein 0.5 B-Natriuretic Peptide 11.4 Serum Total Protein 6.8 Albumin 4.2 Globulin 2.6 Albumin/Globulin Ratio 1.6 Serum HCG, Qual negative Urine HCG, Qual Group A Strep Rapid Departure - Departure Clinical Impression: COVID-19, Strep pharyngitis Disposition: Discharge to Home or Self Care Condition: Good Departure Forms: ED Discharge - Pt. Copy, Patient Portal Self Enrollment Instructions: Coronavirus Disease 2019 (COVID-19), Sore Throat, Adult (DC) Referrals: Gorge Mohan MD [Primary Care Provider] - 1-2 Days Prescriptions: Clindamycin HCl [Clindamycin Hydrochloride] 300 mg PO Q8H 10 Days #30 cap Home Medications: Ambulatory Orders Clindamycin HCl [Clindamycin Hydrochloride] 300 mg PO Q8H 10 Days #30 cap 03/21/20 Additional Instructions: honey and salt water gargles for sore throat. Flonase or alternative nasal corticosteroid 1 spray daily as needed for nasal congestion.
[2020-03-21] MEDS ORDERED: ONDANSETRON INJ 4 MG/2 ML VIAL IV ONE (10:16)
[2020-03-21] MEDS ORDERED: CLINDAMYCIN HCL CAP 150 MG CAP PO ONE (10:40)
[2020-03-21] MEDS ORDERED: DEXAMETHASONE 4 MG TAB PO ONE (10:41)
--- NOTE | 2020-03-21 11:27 | CT ---
EXAM DESCRIPTION: CTA Chest CLINICAL HISTORY: 44 years Female, short of breath, covid COMPARISON: Chest radiograph 03/16/2020 TECHNIQUE: CT images through the thorax with IV contrast using PE protocol. Multiplanar reformations provided. This examination was performed according to a CT angiographic (CTA) protocol with 3D post-processing. This involves 3D reconstructions, MIPS, volume rendered images and/or shaded surface rendering. This exam was performed according to our departmental dose-optimization program, which includes automated exposure control, adjustment of the mA and/or kV according to patient size and/or use of iterative reconstruction technique. CT CHEST PE FINDINGS: Pulmonary arteries and vascular: Diagnostic quality bolus. No filling defects. No appreciable atherosclerosis. Nondilated main pulmonary arteries or pulmonary trunk. Heart and mediastinum: Normal heart size. No pericardial effusion. Unremarkable esophagus. No mediastinal or hilar adenopathy. Thyroid Gland: Normal. Lungs: Subtle mild ground glass opacities along the periphery of the lungs, particularly within the left upper and left lower lobes and to lesser stent within the right lower lobe. Airways: Normal. Pleura: Normal. Musculoskeletal and Soft Tissues: No acute fracture or aggressive appearing osseous lesion. Soft tissues unremarkable. Subphrenic Structures: Normal. IMPRESSION: 1. No pulmonary embolus. 2. Ground glass opacities along the peripheral lungs as described above most likely representing known COVID-19 infection per provided history. Electronically signed by: Elton Montelongo MD 03/21/2020 11:25 AM CDT
[2020-03-21 12:06] VITALS: BP 124/97
[2020-03-21 12:19] VITALS: TEMP 98.2
== END 2020-03-21 12:18 | disposition home or self-care (01) ==
LOC: ER 09:47
DX: U07.1 COVID-19 (principal); J02.0 Streptococcal pharyngitis; R07.89 Other chest pain; Z87.891 Personal history of nicotine dependence
CPT/HCPCS: 36415; 71275; 80053; 82550; 83615; 83735; 83880; 84484; 84703; 85025; 85379; 85730; 86140; 87635; 87880; 93005; J2405; J7030; J8540

== ENCOUNTER → 2020-03-22 | Outpatient (CLI) | payer OTHER | LOC: GMAM 10:24 | PROVIDERS: ATTEND Family Medicine | DX: U07.1 COVID-19 (principal) ==

== ENCOUNTER 2020-03-26 13:55 | Emergency (ER) | payer OTHER ==
[2020-03-26] MEDS ORDERED: ALPRAZolam 0.25 MG TAB PO ONE (14:15)
--- NOTE | 2020-03-26 14:54 | RAD ---
EXAMINATION: Chest x-ray one view. INDICATION: Covid pneumonia COMPARISON: March 16, 2020 TECHNIQUE: Frontal radiograph chest. FINDINGS: Overlying EKG leads and wires obscure portions of the lungs. The cardiac silhouette is normal in size. No focal consolidative process or pulmonary edema. There is no pneumothorax. IMPRESSION: No acute pulmonary findings. No change in aeration from prior study. Electronically signed by: Efrain Sanchez MD 03/26/2020 2:52 PM CDT
--- NOTE | 2020-03-26 15:26 | ED.PDOC ---
History of Present Illness - General Chief Complaint: Respiratory Problem Stated Complaint: right posterior chest pain Time Seen by Provider: 03/26/20 14:15 Source: patient Exam Limitations: no limitations - History of Present Illness Initial Comments: The patient is a 44-year-old female presented emergency room secondary to mild bilateral lower lung field anterior lateral chest discomfort over the last 24 to 48 hours. The patient was diagnosed with coronavirus and apparently strep throat around a week ago. The patient has taken the clindamycin for the strep throat. The patient is not really short of breath. The patient is extremely anxious over her diagnosis of coronavirus and is tearful and shaking. Blood pressures are moderately elevated initially due to anxiety. The patient is saturating 100% on room air with a mask on. She is in no respiratory distress. Tachycardia resolves after the patient calms down. Lung ruggiero are clear on auscultation. Chest x-ray here is clear. Timing/Duration: 24 hours Severity: mild Improving Factors: nothing Worsening Factors: nothing Associated Symptoms: chest pain Allergies/Adverse Reactions: Allergies Erythromycin Allergy (Verified 01/04/20 00:13) Penicillins Allergy (Verified 01/04/20 00:13) Home Medications: Ambulatory Orders Clindamycin HCl [Clindamycin Hydrochloride] 300 mg PO Q8H 10 Days #30 cap 03/21/20 predniSONE [Prednisone] 20 mg PO DAILY #3 tab 03/26/20 Review of Systems - Review of Systems Constitutional: States: malaise EENTM: States: no symptoms reported Respiratory: States: no symptoms reported Cardiology: States: chest pain Gastrointestinal/Abdominal: States: no symptoms reported Genitourinary: States: no symptoms reported Musculoskeletal: States: no symptoms reported Skin: States: no symptoms reported Neurological: States: no symptoms reported Endocrine: States: no symptoms reported Hematologic/Lymphatic: States: no symptoms reported All other Systems: No Change from Baseline Past Medical History (General) - Patient Medical History Hx Seizures: Yes Hx Stroke: No Hx Dementia: No Hx Asthma: No Hx of COPD: No Hx Cardiac Disorders: - SVT, Tachycardia Hx Congestive Heart Failure: No Hx Pacemaker: No Hx Hypertension: No Hx Thyroid Disease: No Hx Diabetes: No Hx Gastroesophageal Reflux: No Hx Renal Disease: No Hx Cancer: No Hx of HIV: No Hx Hepatitis C: No Hx MRSA: No Surgical History: other - Vaccination History Hx Tetanus, Diphtheria Vaccination: Yes Hx Influenza Vaccination: Yes Hx Pneumococcal Vaccination: No - Social History Hx Tobacco Use: Yes - Quit 2009 Hx Alcohol Use: Yes Hx Substance Use: No Hx Substance Use Treatment: No Hx Depression: No - Female History Patient : No Family Medical History - Family History Mother Family History: No Known Living Status: Still Living Physical Exam - Physical Exam General Appearance: Alert, Anxious, No apparent distress Eye Exam: bilateral normal Ears, Nose, Throat: hearing grossly normal, normal pharynx Neck: full range of motion, supple Respiratory: lungs clear, normal breath sounds, no respiratory distress, no accessory muscle use Cardiovascular/Chest: normal peripheral pulses, regular rate, rhythm, no edema Peripheral Pulses: radial,right: 2+, radial,left: 2+ Gastrointestinal/Abdominal: non tender, soft Rectal Exam: deferred Back Exam: no CVA tenderness, no vertebral tenderness Extremity: normal range of motion, non-tender, normal inspection, no pedal edema, normal capillary refill Neurologic: alert, oriented x 3, other - The patient is highly anxious and tearful Skin Exam: normal color Comments: Vital Signs - 24 hr 03/26/20 14:12 Temperature 97.8 F Pulse Rate [ 91 H left brachial] Respiratory 22 Rate Blood Pressure 148/114 [left rachial] O2 Sat by Pulse 99 Oximetry Blood pressures dropped to 130s over 90s upon relaxation Progress - Progress Progress: 03/26/20 15:28 The patient is a 44-year-old female presented emergency room secondary to mild bilateral chest discomfort in the lower lung ruggiero that is most consistent with mild pleurisy related to her coronavirus diagnosis. The patient is having extreme anxiety over the diagnosis. There is no respiratory distress and lung ruggiero are clear. Chest x-ray is clear. She is saturating 100% on room air with a mask. I will write her for 3 days of prednisone at 20 mg to help reduce discomfort from pleurisy. She should preferably take this in the mornings when she can. She does need to keep her follow-up with her primary care doctor. Obviously if something is changing then a repeat evaluation may be warranted. ER warnings are given. elio sandoval [id number] - Results/Orders Results/Orders: Single view chest x-ray is clear. Departure - Departure Clinical Impression: Pleurisy, COVID-19 Disposition: Discharge to Home or Self Care Condition: Fair Departure Forms: ED Discharge - Pt. Copy, Patient Portal Self Enrollment Diet: regular diet Activity: increase activity as tolerated Referrals: Gorge Sandoval MD [Primary Care Provider] - 1-2 Weeks Prescriptions: predniSONE [Prednisone] 20 mg PO DAILY #3 tab Home Medications: Ambulatory Orders Clindamycin HCl [Clindamycin Hydrochloride] 300 mg PO Q8H 10 Days #30 cap 03/21/20 predniSONE [Prednisone] 20 mg PO DAILY #3 tab 03/26/20 Additional Instructions: The patient is a 44-year-old female presented emergency room secondary to mild bilateral chest discomfort in the lower lung ruggiero that is most consistent with mild pleurisy related to her coronavirus diagnosis. The patient is having extreme anxiety over the diagnosis. There is no respiratory distress and lung ruggiero are clear. Chest x-ray is clear. She is saturating 100% on room air with a mask. I will write her for 3 days of prednisone at 20 mg to help reduce discomfort from pleurisy. She should preferably take this in the mornings when she can. She does need to keep her follow-up with her primary care doctor. Obviously if something is changing then a repeat evaluation may be warranted. The patient could also consider taking a dose of [id number] Pepcid once daily for the next week, as the clindamycin she has been taking may be causing some complicating gastritis symptoms. ER warnings are given.
[2020-03-26] MEDS ORDERED: predniSONE 20 MG TAB PO ONE (15:32)
[2020-03-26 17:43] VITALS: BP 129/90; TEMP 97.6; O2SAT 96
== END 2020-03-26 15:35 | disposition home or self-care (01) ==
LOC: ER 13:55
DX: U07.1 COVID-19 (principal); J02.0 Streptococcal pharyngitis; R09.1 Pleurisy; R56.9 Unspecified convulsions; Z87.891 Personal history of nicotine dependence; Z88.1 Allergy status to other antibiotic agents; Z88.0 Allergy status to penicillin
CPT/HCPCS: 71045; J7512

== ENCOUNTER 2020-03-29 11:10 | Emergency (ER) | payer OTHER ==
--- NOTE | 2020-03-29 12:05 | RAD ---
EXAM DESCRIPTION: Chest,1 View CLINICAL HISTORY: covid COMPARISON: 26 March 2020 TECHNIQUE: AP portable chest FINDINGS: The lungs are clear. There is no infiltrate or effusion. The heart is normal size. IMPRESSION: Normal portable chest Electronically signed by: Be Sharp MD 03/29/2020 12:04 PM CDT
--- NOTE | 2020-03-29 12:50 | ED.PDOC ---
History of Present Illness - General Chief Complaint: Respiratory Problem Stated Complaint: SOB Time Seen by Provider: 03/29/20 11:12 Source: patient Exam Limitations: no limitations - History of Present Illness Initial Comments: The patient is a 44-year-old female presented emergency room secondary to concern over her coronavirus diagnosis. Patient does have intermittent episodes of shortness of breath but they always do seem to be associated with times when she is becoming anxious. The patient does have very severe anxiety as documented multiple times on emergency room visits.. She was just started on Zoloft actually yesterday. This may actually be making the anxiety worse in the short-term. Blood pressures are within normal limits. She is oxygenating 100% on room air. Lung ruggiero are clear. There is no evidence of any clinical DVT on lower extremity exam. The patient has had previous D-dimers hovering around 400 which is the upper limits of normal. No syncope or near syncope. No new chest pain. No rash. Timing/Duration: intermittent Severity: mild Improving Factors: nothing Worsening Factors: nothing Associated Symptoms: shortness of breath Allergies/Adverse Reactions: Allergies Erythromycin Allergy (Verified 01/04/20 00:13) Penicillins Allergy (Verified 01/04/20 00:13) Home Medications: Ambulatory Orders Sertraline HCl [Zoloft] 50 mg PO DAILY 03/29/20 Review of Systems - Review of Systems Constitutional: States: no symptoms reported EENTM: States: no symptoms reported Respiratory: States: short of breath Cardiology: States: no symptoms reported Gastrointestinal/Abdominal: States: no symptoms reported Genitourinary: States: no symptoms reported Musculoskeletal: States: no symptoms reported Skin: States: no symptoms reported Neurological: States: anxiety Endocrine: States: no symptoms reported All other Systems: No Change from Baseline Past Medical History (General) - Patient Medical History Hx Seizures: Yes Hx Stroke: No Hx Dementia: No Hx Asthma: No Hx of COPD: No Hx Cardiac Disorders: - SVT, Tachycardia Hx Congestive Heart Failure: No Hx Pacemaker: No Hx Hypertension: No Hx Thyroid Disease: No Hx Diabetes: No Hx Gastroesophageal Reflux: No Hx Renal Disease: No Hx Cancer: No Hx of HIV: No Hx Hepatitis C: No Hx MRSA: No Surgical History: no surgical history - Vaccination History Hx Tetanus, Diphtheria Vaccination: Yes Hx Influenza Vaccination: Yes Hx Pneumococcal Vaccination: No - Social History Hx Tobacco Use: - Quit 2009 Hx Alcohol Use: Yes Hx Substance Use: No Hx Substance Use Treatment: No Hx Depression: No - Activities of Daily Living Hospice Agency (if applicable):: None - Female History Patient : No Family Medical History - Family History Mother Family History: No Known Living Status: Still Living Physical Exam - Physical Exam General Appearance: Alert, Anxious, No apparent distress Eye Exam: bilateral normal Ears, Nose, Throat: hearing grossly normal, normal ENT inspection Neck: full range of motion, supple Respiratory: lungs clear, normal breath sounds, no respiratory distress, no accessory muscle use Cardiovascular/Chest: normal peripheral pulses, regular rate, rhythm, no edema Peripheral Pulses: radial,right: 2+, radial,left: 2+, dorsalis pedis,right: 2+, dorsalis pedis,left: 2+ Gastrointestinal/Abdominal: non tender, soft Rectal Exam: deferred Back Exam: no CVA tenderness, no vertebral tenderness Extremity: normal range of motion, non-tender, normal inspection, no pedal edema, no calf tenderness, normal capillary refill Neurologic: mural painter II-XII nml as tested, alert, oriented x 3, other - The patient is highly anxious Skin Exam: normal color Comments: Vital Signs - 24 hr 03/29/20 03/29/20 11:15 11:30 Temperature 97.7 F Pulse Rate [ 91 H 91 H brachial] Respiratory 20 20 Rate Blood Pressure 136/87 [Right Arm] O2 Sat by Pulse 100 Oximetry Progress - Progress Progress: 03/29/20 12:51 The patient is a 44-year-old female presented emergency room secondary to concern over her coronavirus diagnosis. The patient does have panic attacks which cause her to be somewhat short of breath. She has just recently been started on Zoloft by her primary care doctor. This may take a little while to have its proper effect. Vital signs are stable and the patient is saturating 100% on room air. Lung ruggiero are clear. Laboratory work is reassuring. D- dimer is stable hovering around 400. The patient appears to be tolerating the coronavirus quite well. Keep routine follow-up with primary care doctor. ER warnings given. elio sandoval [phone] - Results/Orders Results/Orders: Chest x-ray is clear. Laboratory Results - last 24 hr 03/29/20 03/29/20 03/29/20 11:50 11:50 11:50 WBC 8.3 RBC 4.58 Hgb 14.3 Hct 40.6 MCV 88.6 MCH 31.1 H MCHC 35.1 RDW 15.2 H Plt Count 260 MPV 6.6 L Absolute Neuts (auto) 6.90 H Absolute Lymphs (auto) 0.90 L Absolute Monos (auto) 0.40 Absolute Eos (auto) 0.10 Absolute Basos (auto) 0.10 Neutrophils % 82.9 H Lymphocytes % 11.3 L Monocytes % 4.4 Eosinophils % 0.7 L Basophils % 0.7 PT 9.6 INR < 1.00 PTT (SP) 23.9 D-Dimer, Quantitative 456.0 H Sodium 137 Potassium 3.8 Chloride 106 Carbon Dioxide 22 Anion Gap 12.8 BUN 7 Creatinine 0.56 L BUN/Creatinine Ratio 12.5 Random Glucose 104 Serum Osmolality 272.1 L Calcium 9.2 Total Bilirubin 1.2 H AST 21 ALT 22 Alkaline Phosphatase 29 L Serum Total Protein 6.7 Albumin 3.9 Globulin 2.8 Albumin/Globulin Ratio 1.4 Departure - Departure Clinical Impression: Anxiety about health, COVID-19 Disposition: Discharge to Home or Self Care Condition: Fair Departure Forms: ED Discharge - Pt. Copy, Patient Portal Self Enrollment Instructions: Panic Disorder Diet: regular diet Activity: increase activity as tolerated Referrals: Gorge Sandoval MD [Primary Care Provider] - 1-2 Weeks Home Medications: Ambulatory Orders Sertraline HCl [Zoloft] 50 mg PO DAILY 03/29/20 Additional Instructions: The patient is a 44-year-old female presented emergency room secondary to concern over her coronavirus diagnosis. The patient does have panic attacks which cause her to be somewhat short of breath. She has just recently been started on Zoloft by her primary care doctor. This may take a little while to have its proper effect. Vital signs are stable and the patient is saturating 100% on room air. Lung ruggiero are clear. Laboratory work is reassuring. D- dimer is stable hovering around 400. The patient appears to be tolerating the coronavirus quite well. Keep routine follow-up with primary care doctor. ER warnings given.
[2020-03-29 13:05] VITALS: TEMP 98.1
[2020-03-29 13:06] VITALS: BP 135/80; O2SAT 100
== END 2020-03-29 13:05 | disposition home or self-care (01) ==
LOC: ER 11:10
DX: U07.1 COVID-19 (principal); F41.9 Anxiety disorder, unspecified; Z87.891 Personal history of nicotine dependence; R06.02 Shortness of breath